=== PATIENT | male | born 1980 | race American Indian/Alaskan Native ===

== ENCOUNTER 2018-07-20 00:32 | Inpatient (IN) | payer SELFPAY ==
[2018-07-20] MEDS: TRIDIL DRIP 50MG/250ML 50 MG/250 ML BOTTLE IV SCH ×2 (00:40→09:17)
--- NOTE | 2018-07-20 00:51 | Emergency Department Report ---
HPI - General Chief Complaint: Dyspnea/Respdistress Time Seen by Provider: 07/20/18 00:34 - HPI HPI: Room 26 The patient is 37-year-old male presenting with chief complaint of shortness of breath. The patient states for 1 day he's had intermittent substernal chest pressure associated with shortness of breath. This evening the patient states shortness of breath worsen. Patient admits to diaphoresis with this chest pressure but denies nausea/vomiting. Per EMS the patient was found at home complaining of shortness of breath and hypoxia with a systolic blood pressure of 290. Patient was administered nitroglycerin by EMS which brought his systolic down to 232 upon arrival to the ED. Denies chest pain. Patient states his only complaint is shortness of breath. Patient states he ran out of his Lasix. Patient states his last stress test occurred approximately 3 months ago and he has never had a cardiac catheterization Location: Chest, lungs Duration: [See above] Quality: Shortness of Breath, pressure Severity: Moderate Modifying factors: [see above] Context: [see above] Mode of transportation: [not driving] ED Past Medical Hx - Past Medical History Previous Medical History?: Yes Hx Hypertension: Yes - Surgical History Past Surgical History?: No - Family History Family history: no significant - Social History Smoking Status: Never Smoker Substance Use Type: None (denies illicit drug use) - Medications Home Medications: Home Medications Medication Instructions Recorded Confirmed Last Taken Type No Known Home Medications [No 07/20/18 07/20/18 Unknown History Reported Home Medications] ED Review of Systems ROS: Stated complaint: SOB Other details as noted in HPI Constitutional: diaphoresis Eyes: denies: eye pain ENT: denies: throat pain Respiratory: shortness of breath Cardiovascular: chest pain Endocrine: no symptoms reported Gastrointestinal: denies: abdominal pain, nausea, vomiting Genitourinary: denies: dysuria Musculoskeletal: denies: back pain Neurological: denies: headache Physical Exam - Physical Exam Vital Signs: Vital Signs 07/20/18 00:33 Temperature 98.6 F Pulse Rate 114 H Respiratory 24 Rate Blood Pressure 232/167 O2 Sat by Pulse 92 Oximetry Physical Exam: GENERAL: The patient is well-developed well-nourished male lying on stretcher appearing to be in moderate respiratory distress. [] HEENT: Normocephalic. Atraumatic. Extraocular motions are intact. Patient has moist mucous membranes. NECK: Supple. Trachea midline CHEST/LUNGS: Diffuse rhonchi. There is tachypnea HEART/CARDIOVASCULAR: Regular. There is tachycardia. There is no gallop rub or murmur. ABDOMEN: Abdomen is soft, nontender. Patient has normal bowel sounds. There is no abdominal distention. SKIN: There is no rash. There is no diaphoresis. NEURO: The patient is awake, alert, and oriented. The patient is cooperative. The patient has normal speech MUSCULOSKELETAL: There is no evidence of acute injury. ED Course Vital Signs 07/20/18 00:33 Temperature 98.6 F Pulse Rate 114 H Respiratory 24 Rate Blood Pressure 232/167 O2 Sat by Pulse 92 Oximetry - Reevaluation(s) Reevaluation #1: 07/20/18 03:00 Patient states he feels a lot better ED Medical Decision Making - Lab Data Result diagrams: 07/20/18 00:45 07/20/18 00:45 Laboratory Tests 07/20/18 00:45 Sodium 137 Potassium 3.7 Chloride 101.2 Carbon Dioxide 21 L Anion Gap 19 BUN 43 H Creatinine 6.9 H Estimated GFR 11 BUN/Creatinine Ratio 6 Glucose 97 Calcium 9.0 Total Creatine Kinase 141 CK-MB (CK-2) 1.1 CK-MB (CK-2) Rel Index 0.7 Troponin T < 0.010 NT-Pro-B Natriuret Pep 57324 H WBC 7.2 Hemoglobin 11.3 Hematocrit 34.3 Platelet 154 - EKG Data -: EKG Interpreted by Me EKG shows normal: sinus rhythm Rate: tachycardia (110 bpm) - EKG Data When compared to previous EKG there are: previous EKG unavailable Interpretation: nonspecific ST-T wave roberta (T-wave inversion in lead V5, V6) - Radiology Data Radiology results: report reviewed (chest x-ray), image reviewed (chest x-ray) interpreted by me: Chest x-ray-early CHF. No pneumothorax [facility] [address] [place] [address] XRay Report Signed Patient: ANGEL ABRAMS MR#: [id number] : 1980 Acct:[id number] Age/Sex: 37 / M ADM Date: 07/20/18 Loc: ED Attending Dr: Ordering Physician: JOE FUNES MD Date of Service: 07/20/18 Procedure(s): XR chest 1V ap Accession Number(s): [id number] cc: JOE FUNES MD Fluoro Time In Minutes: FINAL REPORT PROCEDURE: XR CHEST 1V AP TECHNIQUE: Chest radiograph anteroposterior view. CPT 23197 HISTORY: shortness of breath COMPARISON: No prior studies are available for comparison. FINDINGS: Heart: Normal. Mediastinum/Vessels: Normal. Lungs/Pleural space: Lungs are expanded. There are faint perihilar pulmonary infiltrates. There is no pleural effusion or pneumothorax.. Bony thorax: No acute osseous abnormality. Life support devices: None. IMPRESSION: The heart size is normal.. Lungs are expanded. There are yisel nt perihilar pulmonary infiltrates. There is no pleural effusion or pneumothorax.. Transcribed By: CO Dictated By: ARDEN GARCIA MD Electronically Authenticated By: ARDEN GARCIA MD Signed Date/Time: 07/20/18129 DD/ 6 TD/TT: 07/20/18126 - Differential Diagnosis hypertensive urgency, CHF, pulmonary edema, ACS Critical care attestation.: If time is entered above; I have spent that time in minutes in the direct care of this critically ill patient, excluding procedure time. ED Disposition Clinical Impression: Hypertensive emergency, Shortness of breath, Acute renal failure Disposition: OP ADMIT IP TO THIS HOSP Is pt being admited?: Yes Does the pt Need Aspirin: Yes Condition: Serious Instructions: Hypertension (ED) Time of Disposition: 02:59 (hospitalist paged (Dr Charles))
[2018-07-20] MEDS ORDERED: ASPIRIN ONE (01:06)
--- NOTE | 2018-07-20 01:28 | XRay Report ---
FINAL REPORT PROCEDURE: XR CHEST 1V AP TECHNIQUE: Chest radiograph anteroposterior view. CPT 25919 HISTORY: shortness of breath COMPARISON: No prior studies are available for comparison. FINDINGS: Heart: Normal. Mediastinum/Vessels: Normal. Lungs/Pleural space: Lungs are expanded. There are faint perihilar pulmonary infiltrates. There is no pleural effusion or pneumothorax.. Bony thorax: No acute osseous abnormality. Life support devices: None. IMPRESSION: The heart size is normal.. Lungs are expanded. There are faint perihilar pulmonary infiltrates. There is no pleural effusion or pneumothorax..
[2018-07-20 02:15] LABS: Creatine Kinase MB 1.1 ng/mL (0.0-4.0)
[2018-07-20 02:35] LABS: BUN/Creatinine Ratio 6; Blood Urea Nitrogen 43 mg/dL (9-20); Hemolysis Index 1
[2018-07-20 03:00] LABS: Basophils # (Auto) 0.1 K/mm3 (0.0-0.1); Basophils % (Auto) 0.7 % (0.0-1.8); Eosinophils # (Auto) 0.2 K/mm3 (0.0-0.4); Eosinophils % (Auto) 2.2 % (0.0-4.3); Hematocrit 34.3 % (35.5-45.6); Hemoglobin 11.3 gm/dl (11.8-15.2); Lymphocytes % (Auto) 13.7 % (13.4-35.0); Mean Corpuscular HGB Conc 33 % (32-34); Mean Corpuscular Volume 83 fl (84-94); Monocytes # (Auto) 0.6 K/mm3 (0.0-0.8); Monocytes % (Auto) 8.3 % (0.0-7.3); Platelet Count 154 K/mm3 (140-440); Red Blood Count 4.14 M/mm3 (3.65-5.03); Red Cell Distribution Width 13.8 % (13.2-15.2)
[2018-07-20 03:36] LABS: Partial Thromboplastin Time 31.2 Sec. (24.2-36.6)
[2018-07-20] MEDS ORDERED: TYLENOL PO PRN (03:45)
[2018-07-20] MEDS ORDERED: MORPHINE IV PRN (03:46)
[2018-07-20] MEDS ORDERED: ZOFRAN IV PRN (03:48)
--- NOTE | 2018-07-20 05:04 | History and Physical Report ---
CHIEF COMPLAINT: Shortness of breath. Other complaint includes chest pain. HISTORY OF PRESENT ILLNESS: The patient is a 37-year-old male who started having shortness of breath some hours prior to presentation and developed diaphoresis with chest pressure, there was no history of nausea or vomiting, and no history of fever or chills and the patient was at home with systolic blood pressure rising up to as high as 290. EMS gave the patient nitroglycerin that brought down his systolic blood pressure to 232 on arrival at the Emergency Room. The patient said he ran out of his Lasix medication and denied history of chills, cough or fever. PAST MEDICAL HISTORY: Pertinent for hypertension. PAST SURGICAL HISTORY: Unremarkable. FAMILY HISTORY: Noncontributory. SOCIAL HISTORY: The patient does not smoke, does not drink alcohol, and does not use illicit drugs. MEDICATIONS: The patient's home medications are not known at this time; except that patient said he takes Lasix. ALLERGIES: There are no known drug allergies. REVIEW OF SYSTEMS: CONSTITUTIONAL: There are no fever, no chills. Diaphoresis present. HEENT: There is no headache or sore throat. CARDIOVASCULAR SYSTEM: Chest pain is present. There is no orthopnea. RESPIRATORY SYSTEM: Shortness of breath is present. There is no cough. GASTROINTESTINAL SYSTEM: There is no nausea, no vomiting, no abdominal pain, diarrhea or constipation. NEUROLOGICAL SYSTEM: There is no numbness. There is dizziness from time to time and no change in mental status. MUSCULOSKELETAL SYSTEM: There is no joint pain or swelling. DERMATOLOGICAL SYSTEM: There is no skin rash or itching. GENITOURINARY SYSTEM: There is no dysuria, hematuria, or flank pain. Rest of system review is normal. PHYSICAL EXAMINATION: GENERAL: At the time of exam, the patient was found to be alert, oriented x 3 and not in acute distress. VITAL SIGNS: Initial vital signs shows temperature of 98.6 degrees Fahrenheit, pulse of 114, respirations 24, blood pressure 232/167, O2 sat of 92% on room air. HEENT: Showed pupils to be equal, round, reactive to light and accommodating. Extraocular muscles are intact. NECK: Supple with no JVD or carotid bruit. CARDIOVASCULAR SYSTEM: Showed normal first and second heart sounds with no gallops or murmurs. RESPIRATORY SYSTEM: Showed good air entry on both sides of the lungs with no abnormal breath sounds. GASTROINTESTINAL SYSTEM: Showed abdomen to be full, soft, nontender with no organomegaly or rigidity. NEUROLOGICAL: Showed no focal deficit. MUSCULOSKELETAL SYSTEM: Showed no joint swelling or tenderness. DERMATOLOGICAL SYSTEM: Showed no skin rash. GENITOURINARY SYSTEM: Showed no costovertebral angle tenderness. PERTINENT LABORATORY AND IMAGING STUDIES: The patient had chest x-ray done that shows expanded lung with faint perihilar pulmonary infiltrate with no pleural effusion or pneumothorax found. The patient has CBC done with normal white count, low hemoglobin of 11.3 and low hematocrit of 34.3 with low MCV of 83. CBC differential showed elevated monocyte count of 8.3 %. Coagulation studies were unremarkable. Chemistry showed elevated BUN of 43 with elevated creatinine of 6.9. Brain natriuretic peptide level is high with a value of 18,207. DIAGNOSES: 1. Chest pain. 2. Hypertensive emergency. 3. Acute kidney injury. PLAN OF CARE: 1. The patient will be admitted to critical care unit. 2. The patient will continue nitro drip started in the Emergency Room. 3. The patient will have a critical care consult with Dr. Kenney for ICU admission with nitro drip. 4. The patient will have Nephrology consult with Dr. Regina Spence for acute kidney injury. 5. The patient will have serial cardiac enzymes involving troponin, total CK, and CK-MB checked every 6 hours x 2 more levels. 6. The patient will have basic metabolic panel checked this morning at about 6 a.m. 7. The patient will be on aspirin 325 mg by mouth daily and will be on heparin 5000 units subq q.12 hours. 10. The patient will be on IV morphine 2 mg every 3 hours as needed for chest pain and will be on IV Zofran 4 mg every 8 hours as needed for nausea and vomiting. 11. This patient will remain n.p.o. for Lexiscan stress test this morning. 12. The patient will have urine drug screen done this morning and will be on oxygen by nasal cannula at 2 liters per minute. JOB# [id number] OCN/NTS MTDD
[2018-07-20 06:41] LABS: Creatine Kinase MB 1.3 ng/mL (0.0-4.0)
[2018-07-20 06:45] LABS: Calcium 8.7 mg/dL (8.4-10.2)
[2018-07-20 07:39] LABS: Amphetamine Screen,Urine PRESUMPTIVE NEGATIVE; Benzodiazepines Screen,Urine PRESUMPTIVE NEGATIVE; Cannabinoid Screen,Urine PRESUMPTIVE NEGATIVE; Cocaine Screen,Urine PRESUMPTIVE NEGATIVE; Methadone Screen,Urine PRESUMPTIVE NEGATIVE; Opiate Screen,Urine PRESUMPTIVE NEGATIVE
[2018-07-20] MEDS ORDERED: ZOFRAN ONE (08:28)
[2018-07-20] MEDS ORDERED: TRIDIL DRIP 50MG/250ML 50 MG/250 ML BOTTLE ONE (08:34)
[2018-07-20] MEDS: ASPIRIN PO SCH (09:17)
[2018-07-20] MEDS: HEPARIN SUB-Q SCH ×2 (09:17→22:12)
[2018-07-20] MEDS ORDERED: COREG PO SCH ×2 (10:00→11:00)
[2018-07-20] MEDS: CARDENE 50 MG in NACL 0.9% 250ML 230 ML IV SCH ×3 (10:52→20:10)
--- NOTE | 2018-07-20 13:30 | Event Note ---
Date: 07/20/18 Patient seen and examined The patient is 37-year-old male presenting with chief complaint of intermittent substernal chest pressure associated with shortness of breath. This evening the patient states shortness of breath worsen. Per EMS the patient was found at home complaining of shortness of breath and hypoxia with a systolic blood pressure of 290. He was placed on NTG drip and admitted to ICU Will change his drip to cardene as he is c/o headache this am and BP still >200 will also start po coreg, hydralazine renal consulted for DHEERAJ
[2018-07-20] MEDS: APRESOLINE PO SCH ×2 (14:39→20:13)
--- NOTE | 2018-07-20 15:16 | Consultation ---
History of Present Illness - Reason for Consult Consult date: 07/20/18 acute renal failure, chronic renal failure, accelerated hypertension Requesting physician: MARION BENNETT - History of Present Illness 57-year-old male with a history of hypertension diagnosed about a year ago but will probably had it for much longer. Also told he had chronic kidney disease but he does not know the stage. Presented on account of one-day history of shortness of breath and intermittent chest pain. Patient lost his job and lost his insurance and so has been out of his medications for a couple of weeks. Described the pain as a throbbing pain in the left side of his chest which was intermittent and occurred while he was watching TV with his family. It was associated with shortness of breath and diaphoresis but no dizziness or palpitations. No headache. Patient's symptoms get worse and so he came to the ER. He is blood pressure was as high as 232/107 mmHg on presentation. BUN and creatinine are found to be elevated and I am consulted to assist in managing this. As noted earlier, had been told he has chronic kidney disease secondary to hypertension but does not know what stage. No history of kidney stones or recurrent infections. Has not been using any nonsteroidal anti-inflammation drugs recently and has not been exposed to radiocontrast. 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 denies: smoking, alcohol abuse, prescription drug abuse, IV drug use Family history: cancer (Father possibly of cancer), hypertension (mother has hypertension and also brother), other (Sister has low blood pressure) Medications and Allergies Allergies Allergy/AdvReac Type Severity Reaction Status Date / Time No Known Allergies Allergy Unverified 07/20/18 00:35 Home Medications Medication Instructions Recorded Confirmed Last Taken Type Carvedilol [Coreg] 6.25 mg PO 07/20/18 Unknown History amLODIPine [Norvasc] 10 mg PO DAILY 07/20/18 07/20/18 Unknown History niCARdipine 07/20/18 Unknown History Active Meds: Active Medications Acetaminophen (Tylenol) 650 mg PO Q4H PRN PRN Reason: Headache Aspirin (Aspirin) 325 mg PO QDAY JUNIOR Last Admin: 07/20/18 09:17 Dose: 325 mg Documented by: Atorvastatin Calcium (Lipitor) 40 mg PO QHS [facility] Carvedilol (Coreg) 6.25 mg PO BID [facility] Last Admin: 07/20/18 11:08 Dose: 6.25 mg Documented by: Heparin Sodium (Porcine) (Heparin) 5,000 unit SUB-Q Q12HR [facility] Last Admin: 07/20/18 09:17 Dose: 5,000 unit Documented by: Hydralazine HCl (Apresoline) 100 mg PO TID [facility] Last Admin: 07/20/18 14:39 Dose: 100 mg Documented by: Nicardipine HCl 50 mg/ Sodium (Chloride) 250 mls @ 25 mls/hr IV TITR [facility]; Protocol Last Titration: 07/20/18 11:15 Dose: 10 mg/hr, 50 mls/hr Documented by: Morphine Sulfate (Morphine) 2 mg IV Q3H PRN PRN Reason: Pain, Moderate (4-6) Last Admin: 07/20/18 09:17 Dose: 2 mg Documented by: Ondansetron HCl (Zofran) 4 mg IV Q8H PRN PRN Reason: Nausea And Vomiting Last Admin: 07/20/18 08:27 Dose: 4 mg Documented by: Review of Systems All systems: negative (Constitutional: no fever or chills. No anorexia or weight loss. HEENT: No sore throat or sinus drainage no hearing or vision impairment . Cardiovascular: See history of present illness. Respiratory: Admits to cough productive of whitish sputum, clear also admits to hemoptysis but no wheezing. Gastrointestinal: No nausea, vomiting, diarrhea, abdominal pain, hematemesis or melena. Genitourinary: No frequency urgency dysuria or hematuria. hematologic: No abnormal bleeding or bruising. Integumentary: no pruritus or rash. Neurolo gical: Admits to dizziness on getting up sometimes. No headache no focal weakness or numbness, no syncope or seizures. Musculoskeletal: No joint pains no stiffness. Psychiatry: no anxiety or depression) Exam - Vital Signs Vital signs: Vital Signs Pulse Ox 93 07/20/18 00:26 - Physical Exam Narrative exam: Young -[place]ian male lying in bed in no acute distress HEENT: NCAT, pink oral mucous membrane Neck: Supple, no venous distention CVS: S1S2 RRR loud S2 with no murmur, rub or gallop Chest: Clear to auscultation Abdomen: Protuberant, soft, nontender, no organomegaly, bowel sounds are present Extremities: No edema Skin warm and dry with no rash. Genitourinary deferred Neuro: Awake, alert no focal deficits Results - Lab Results 07/20/18 00:45 07/20/18 05:38 Most recent lab results Calcium 8.7 mg/dL (8.4-10.2) 07/20/18 05:38 Assessment and Plan - Patient Problems (1) Chronic kidney disease, stage 5 Current Visit: Yes Status: Acute Plan to address problem: Suspect chronic kidney disease secondary to hypertensive nephrosclerosis which is progressing to stage V chronic kidney disease. If there is significance proteinuria on urinalysis, would do a more extensive evaluation for glomerulonephritis. No overt uremic symptoms and no volume overload. No indication for dialysis now. Observe for improvement in kidney function otherw ise we need to start making arrangements for AV access dialysis soon. (2) Other acute kidney failure Current Visit: Yes Status: Acute Plan to address problem: Possible acute kidney injury secondary to malignant hypertensive nephrosclerosis. Control blood pressure and observe for improvement in kidney f unction. Also try to get records from primary care physician of previous renal function (3) Chest pain Current Visit: Yes Status: Acute Plan to address problem: Probably related to hypertensive emergency. If no previous cardiac WORKUP, may need a stress test. Defer to cardiology (4) Anemia in chronic kidney disease Current Visit: Yes Status: Acute Plan to address problem: Follow-up hemoglobin. Will need Erythropoetin when he decreases to less than 9 g/dL (5) Hypertensive emergency Current Visit: Yes Status: Acute Plan to address problem: Patient on Cardene drip. Start oral antihypertensive medications with parameters to hold and slowly wean off Cardene drip
[2018-07-20 15:31] LABS: Creatine Kinase MB 1.6 ng/mL (0.0-4.0)
--- NOTE | 2018-07-20 18:04 | Consultation ---
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 denies: smoking, alcohol abuse, prescription drug abuse, IV drug use Family history: cancer (Father possibly of cancer), hypertension (mother has hypertension and also brother), other (Sister has low blood pressure) Medications and Allergies Allergies Allergy/AdvReac Type Severity Reaction Status Date / Time No Known Allergies Allergy Unverified 07/20/18 00:35 Home Medications Medication Instructions Recorded Confirmed Last Taken Type Carvedilol [Coreg] 6.25 mg PO BID 07/20/18 07/21/18 07/05/18 History amLODIPine [Norvasc] 10 mg PO DAILY 07/20/18 07/20/18 Unknown History Active Meds: Active Medications Acetaminophen (Tylenol) 650 mg PO Q4H PRN PRN Reason: Headache Aspirin (Aspirin) 325 mg PO QDAY [facility] Last Admin: 07/20/18 09:17 Dose: 325 mg Documented by: Atorvastatin Calcium (Lipitor) 40 mg PO QHS [facility] Carvedilol (Coreg) 12.5 mg PO BID [facility] Clonidine HCl (Catapres) 0.1 mg PO Q12HR [facility] Heparin Sodium (Porcine) (Heparin) 5,000 unit SUB-Q Q12HR [facility] Last Admin: 07/20/18 09:17 Dose: 5,000 unit Documented by: Hydralazine HCl (Apresoline) 100 mg PO TID [facility] Last Admin: 07/20/18 14:39 Dose: 100 mg Documented by: Nicardipine HCl 50 mg/ Sodium (Chloride) 250 mls @ 25 mls/hr IV TITR [facility]; Protocol Last Admin: 07/20/18 15:15 Dose: 10 mg/hr, 50 mls/hr Documented by: Morphine Sulfate (Morphine) 2 mg IV Q3H PRN PRN Reason: Pain, Moderate (4-6) Last Admin: 07/20/18 09:17 Dose: 2 mg Documented by: Ondansetron HCl (Zofran) 4 mg IV Q8H PRN PRN Reason: Nausea And Vomiting Last Admin: 07/20/18 08:27 Dose: 4 mg Documented by: Physical Examination Vital signs: Vital Signs Pulse Ox 93 07/20/18 00:26 Results - Laboratory Findings CBC and BMP: 07/20/18 00:45 07/21/18 05:00 PT/INR, D-dimer PT 13.8 Sec. (12.2-14.9) 07/20/18 00:44 INR 1.00 (0.87-1.13) 07/20/18 00:44 Abnormal lab findings: Abnormal Labs 07/20/18 07/20/18 07/20/18 00:45 00:45 05:38 Hgb 11.3 L Hct 34.3 L MCV 83 L MCH 27 L [place] % (Auto) 8.3 H Lymph # 1.0 L Seg Neutrophils % 75.1 H Carbon Dioxide 21 L 21 L BUN 43 H 44 H Creatinine 6.9 H 6.7 H Glucose 107 H NT-Pro-B Natriuret Pep 18653 H
[2018-07-20] MEDS: NORMODYNE IV SCH ×2 (18:55→23:44)
[2018-07-20 19:12] LABS: Bacteria,Urine 1+ /HPF (Negative); Bilirubin,Urine NEG (Negative); Blood,Urine SM (Negative); Color,Urine Straw (Yellow); Mucus,Urine FEW /HPF; Urobilinogen,Urine < 2.0 mg/dL (<2.0); WBC,Urine < 1.0 /HPF (0.0-6.0)
[2018-07-20 19:47] LABS: Creatinine,Urine 88.8 mg/dL (0.1-20.0)
[2018-07-20] MEDS: CATAPRES PO SCH (22:11)
[2018-07-20] MEDS: COREG PO SCH (22:11)
--- NOTE | 2018-07-20 22:17 | Ultrasound Report ---
FINAL REPORT PROCEDURE: US RENAL BILAT TECHNIQUE: Real-time sonography in multiple planes of the kidneys, ureters and urinary bladder was p erformed with image documentation. CPT 30533 HISTORY: Acute kidney injury COMPARISON: No prior studies are available for comparison. FINDINGS: RIGHT kidney: Hyperechoic suggesting chronic medical renal disease. No focal renal mass, calculus, or hydronephrosis. Length: 9.1 cm. There is an 8 millimeter cortical cyst. LEFT kidney: Hyperechoic suggesting chronic medical renal disease No focal renal mass, calculus, or h ydronephrosis. Length: 9.8cm. There is a 3.5 centimeter cyst at the apex. Bladder: Normal. Incidental bilateral pleural effusions. IMPRESSION: Kidneys are atrophic and hyperechoic suggesting chronic medical renal disease. There are incidental b ilateral cysts. There are no stones, masses or hydronephrosis..
[2018-07-21] MEDS: NORMODYNE IV SCH ×6 (03:23→23:30)
[2018-07-21 05:40] LABS: Calcium 8.5 mg/dL (8.4-10.2)
[2018-07-21] MEDS: APRESOLINE PO SCH ×3 (07:59→21:13)
--- NOTE | 2018-07-21 08:14 | Progress Note ---
Assessment and Plan - Patient Problems (1) Hypertensive emergency Current Visit: Yes Status: Acute Plan to address problem: Weaned off the cardene gtt, and is now tolerating PO medications. Will continue to monitor, and if further blood pressure control desired, would favor and recommend increasing coreg to 25 mg BID. (2) Chronic kidney disease, stage 5 Current Visit: Yes Status: Acute Plan to address problem: Based on labs and renal US, discussed with patient my concerns for likely progression to CKD V and need for HD in the near future. Will monitor closely. Will need to be referred to vascular surgery for permanent AVF placement. He is not exhibiting any uremic symptoms or signs of volume overload that necessitates the need for urgent HD initiation. (3) Anemia in chronic kidney disease Current Visit: Yes Status: Acute Qualifiers: Chronic kidney disease stage: stage 5, not on chronic dialysis Qualified Code(s): N18.5 - Chronic kidney disease, stage 5; D63.1 - Anemia in chronic kidney disease Plan to address problem: Continue to monitor H/H. BRYON therapy if hemoglobin levels decrease below 9g/dL. (4) Chest pain Current Visit: Yes Status: Acute Plan to address problem: Possibly in the setting of HTN emergency. Symptomatically free at this time. Await further cardiology recommendations. Subjective Date of service: 07/21/18 Interval history: He has been weaned off the cardene gtt. Has also been started on oral medications. No acute complaints at this time. His labs noted and still indicates significant renal damage. No acute uremic symptoms and no acute HD needs today, but I told him that he needs to have close follow up with us as an outpatient in order for close follow up and likely need for HD initiation in near future. Objective - Vital Signs Vital signs: Vital Signs - 12hr 07/20/18 07/20/18 07/20/18 20:15 20:30 20:45 Temperature Pulse Rate 95 H 95 H 97 H Pulse Rate [ From Monitor] Respiratory 32 H 26 H 27 H Rate Blood Pressure 140/82 149/90 151/93 O2 Sat by Pulse 94 95 94 Oximetry 07/20/18 07/20/18 07/20/18 21:01 21:15 21:30 Temperature Pulse Rate 99 H 101 H 99 H Pulse Rate [ From Monitor] Respiratory 35 H 28 H 27 H Rate Blood Pressure 157/92 164/101 147/90 O2 Sat by Pulse 94 94 94 Oximetry 07/20/18 07/20/18 07/20/18 21:45 22:00 22:11 Temperature Pulse Rate 99 H 101 H 101 H Pulse Rate [ From Monitor] Respiratory 31 H 26 H Rate Blood Pressure 140/88 140/88 145/90 O2 Sat by Pulse 94 95 Oximetry 07/20/18 07/20/18 07/20/18 22:15 22:30 22:45 Temperature Pulse Rate 105 H 101 H 104 H Pulse Rate [ From Monitor] Respiratory 24 28 H 23 Rate Blood Pressure 158/99 148/88 138/83 O2 Sat by Pulse 94 94 94 Oximetry 07/20/18 07/20/18 07/20/18 23:00 23:15 23:30 Temperature Pulse Rate 101 H 98 H 96 H Pulse Rate [ From Monitor] Respiratory 26 H 23 24 Rate Blood Pressure 136/79 139/82 138/83 O2 Sat by Pulse 94 94 94 Oximetry 07/20/18 07/20/18 07/21/18 23:44 23:45 00:00 Temperature 98.8 F Pulse Rate 100 H 93 H 91 H Pulse Rate [ 87 From Monitor] Respiratory 26 H 29 H Rate Blood Pressure 136/79 133/78 133/72 O2 Sat by Pulse 94 93 Oximetry 07/21/18 07/21/18 07/21/18 00:15 00:30 00:45 Temperature Pulse Rate 90 89 89 Pulse Rate [ From Monitor] Respiratory 25 H 21 24 Rate Blood Pressure 132/73 135/78 136/83 O2 Sat by Pulse 93 93 93 Oximetry 07/21/18 07/21/18 07/21/18 01:00 01:15 01:30 Temperature Pulse Rate 89 88 89 Pulse Rate [ From Monitor] Respiratory 23 26 H 18 Rate Blood Pressure 141/84 138/82 139/83 O2 Sat by Pulse 96 96 96 Oximetry 07/21/18 07/21/18 07/21/18 01:45 02:00 02:15 Temperature Pulse Rate 90 90 90 Pulse Rate [ From Monitor] Respiratory 25 H 22 21 Rate Blood Pressure 137/81 143/79 136/81 O2 Sat by Pulse 97 96 97 Oximetry 07/21/18 07/21/18 07/21/18 02:30 02:45 03:00 Temperature Pulse Rate 91 H 88 87 Pulse Rate [ From Monitor] Respiratory 26 H 23 27 H Rate Blood Pressure 130/88 124/72 120/69 O2 Sat by Pulse 96 96 96 Oximetry 07/21/18 07/21/18 07/21/18 03:15 03:23 03:30 Temperature Pulse Rate 88 88 88 Pulse Rate [ From Monitor] Respiratory 22 22 Rate Blood Pressure 123/67 123/67 118/66 O2 Sat by Pulse 96 96 Oximetry 07/21/18 07/21/18 07/21/18 03:45 04:00 04:15 Temperature 98.8 F Pulse Rate 88 89 87 Pulse Rate [ 90 From Monitor] Respiratory 21 21 24 Rate Blood Pressure 127/77 123/68 130/71 O2 Sat by Pulse 96 96 96 Oximetry 07/21/18 07/21/18 07/21/18 04:30 04:45 05:00 Temperature Pulse Rate 89 89 92 H Pulse Rate [ From Monitor] Respiratory 20 21 22 Rate Blood Pressure 129/73 133/77 140/81 O2 Sat by Pulse 97 97 96 Oximetry 07/21/18 07/21/18 07/21/18 05:15 05:30 05:45 Temperature Pulse Rate 93 H 92 H 92 H Pulse Rate [ From Monitor] Respiratory 24 24 21 Rate Blood Pressure 152/92 151/90 144/88 O2 Sat by Pulse 97 97 97 Oximetry 07/21/18 07/21/18 07/21/18 06:00 06:15 06:30 Temperature Pulse Rate 93 H 91 H 93 H Pulse Rate [ From Monitor] Respiratory 22 22 27 H Rate Blood Pressure 143/89 146/86 151/93 O2 Sat by Pulse 97 97 96 Oximetry 07/21/18 07/21/18 07/21/18 06:45 07:00 07:15 Temperature Pulse Rate 92 H 93 H 92 H Pulse Rate [ From Monitor] Respiratory 23 22 20 Rate Blood Pressure 145/87 154/94 152/93 O2 Sat by Pulse 96 96 97 Oximetry 07/21/18 07/21/18 07:30 07:42 Temperature Pulse Rate 95 H 94 H Pulse Rate [ From Monitor] Respiratory 21 Rate Blood Pressure 164/103 164/103 O2 Sat by Pulse 97 Oximetry - General Appearance General appearance: well-developed, well-nourished, appears stated age EENT: ATNC, PERRL Neck: no JVD, no thyromegaly Respiratory: Present: Clear to Ascultation Cardiology: regular, S1S2 Gastrointestinal: normal, normoactive bowel sounds Integumentary: no rash, warm and dry Neurologic: no focal deficit, no asterixis Musculoskeletal: other (-edema ) Psychiatric: mood/affect appropriate, cooperative - Lab 07/20/18 00:45 07/21/18 05:00 Most recent lab results Calcium 8.5 mg/dL (8.4-10.2) 07/21/18 05:00 Urine Creatinine 88.8 mg/dL (0.1-20.0) H 07/20/18 Unknown Urine Total Protein 79 mg/dL (5-11.8) H 07/20/18 Unknown - Imaging Chest x-ray: pending - Allied health notes Allied health notes reviewed: nursing Medications & Allergies - Medications Allergies/Adverse Reactions: Allergies No Known Allergies Allergy (Unverified 07/20/18 00:35) Home Medications: Home Medications Medication Instructions Recorded Confirmed Last Taken Type Carvedilol [Coreg] 6.25 mg PO 07/20/18 Unknown History amLODIPine [Norvasc] 10 mg PO DAILY 07/20/18 07/20/18 Unknown History niCARdipine 07/20/18 Unknown History Active Medications: Generic Name Dose Route Start Last Admin Trade Name Freq PRN Reason Stop Dose Admin Acetaminophen 650 mg 07/20/18 03:45 Tylenol PO Q4H PRN Headache Aspirin 325 mg 07/20/18 10:00 07/20/18 09:17 Aspirin PO 325 mg QDAY JUNIOR Administration Atorvastatin Calcium 40 mg 07/20/18 22:00 07/20/18 22:11 Lipitor PO 40 mg QHS JUNIOR Administration Carvedilol 12.5 mg 07/20/18 22:00 07/20/18 22:11 Coreg PO 12.5 mg BID JUNIOR Administration Clonidine HCl 0.1 mg 07/20/18 22:00 07/20/18 22:11 Catapres PO 0.1 mg Q12HR JUNIOR Administration Heparin Sodium (Porcine) 5,000 unit 07/20/18 10:00 07/20/18 22:12 Heparin SUB-Q 5,000 unit Q12HR JUNIOR Administration Hydralazine HCl 100 mg 07/20/18 14:00 07/21/18 07:59 Apresoline PO 100 mg TID JUNIOR Administration Nicardipine HCl 50 mg/ Sodium 250 mls @ 25 mls/hr 07/20/18 10:00 07/20/18 21:00 Chloride IV 0 mg/hr TITR JUNIOR 0 mls/hr Titration Protocol 5 MG/HR Labetalol HCl 10 mg 07/20/18 19:00 07/21/18 07:42 Normodyne IV 07/22/18 18:59 10 mg Q4H JUNIOR Administration Morphine Sulfate 2 mg 07/20/18 03:46 07/20/18 09:17 Morphine IV 2 mg Q3H PRN Administration Pain, Moderate (4-6) Ondansetron HCl 4 mg 07/20/18 03:48 07/20/18 08:27 Zofran IV 4 mg Q8H PRN Administration Nausea And Vomiting
[2018-07-21] MEDS: HEPARIN SUB-Q SCH ×2 (10:09→21:14)
[2018-07-21] MEDS: COREG PO SCH ×2 (10:10→21:14)
[2018-07-21] MEDS: CATAPRES PO SCH ×2 (10:10→21:13)
[2018-07-21] MEDS: ASPIRIN PO SCH (10:10)
--- NOTE | 2018-07-21 15:23 | Progress Note ---
Assessment and Plan Hypertensive emergency. Chest Pain Cardiomyopathy. Acute on chronic kidney injury. Acute hypoxemic respiratory failure. Anemia that is microcytic. Mild metabolic acidosis. Elevated serum BNP. Medication noncompliance. - continue IV labetalol with hold parameters - continue with oral medications - continue GI & VTE prophylaxis - continue to avoid nephrotoxic agents, dose all medications for GFR/CrCL - PT/OT - continue supplemental oxygen as indicated if O2 sats< 88% - Discharge planning ongoing concurrently .... re-evaluate in am & prn Subjective Date of service: 07/21/18 Principal diagnosis: Hypertensive emergency; Chest pain; Chronic Kidney Disease Stage IV Interval history: Patient is seen today for: Hypertensive emergency; Chest pain; Chronic Kidney Disease Stage IV Seen and examined at bedside; 24hour events reviewed; nursing and respiratory care staff consulted; no adverse overnight events reported to me; denies any chest pain or acute SOB; No N/V/F/C; no hemoptysis; BP's better controlled Objective Vital Signs - 12hr 07/21/18 07/21/18 07/21/18 03:23 03:30 03:45 Temperature Pulse Rate 88 88 88 Pulse Rate [ From Monitor] Respiratory 22 21 Rate Blood Pressure 123/67 118/66 127/77 O2 Sat by Pulse 96 96 Oximetry 07/21/18 07/21/18 07/21/18 04:00 04:15 04:30 Temperature 98.8 F Pulse Rate 89 87 89 Pulse Rate [ 90 From Monitor] Respiratory 21 24 20 Rate Blood Pressure 123/68 130/71 129/73 O2 Sat by Pulse 96 96 97 Oximetry 07/21/18 07/21/18 07/21/18 04:45 05:00 05:15 Temperature Pulse Rate 89 92 H 93 H Pulse Rate [ From Monitor] Respiratory 21 22 24 Rate Blood Pressure 133/77 140/81 152/92 O2 Sat by Pulse 97 96 97 Oximetry 07/21/18 07/21/18 07/21/18 05:30 05:45 06:00 Temperature Pulse Rate 92 H 92 H 93 H Pulse Rate [ From Monitor] Respiratory 24 21 22 Rate Blood Pressure 151/90 144/88 143/89 O2 Sat by Pulse 97 97 97 Oximetry 07/21/18 07/21/18 07/21/18 06:15 06:30 06:45 Temperature Pulse Rate 91 H 93 H 92 H Pulse Rate [ From Monitor] Respiratory 22 27 H 23 Rate Blood Pressure 146/86 151/93 145/87 O2 Sat by Pulse 97 96 96 Oximetry 07/21/18 07/21/18 07/21/18 07:00 07:15 07:30 Temperature Pulse Rate 93 H 92 H 95 H Pulse Rate [ From Monitor] Respiratory 22 20 21 Rate Blood Pressure 154/94 152/93 164/103 O2 Sat by Pulse 96 97 97 Oximetry 07/21/18 07/21/18 07/21/18 07:42 07:45 08:00 Temperature 97.9 F Pulse Rate 94 H 94 H 94 H Pulse Rate [ 94 H From Monitor] Respiratory 24 24 Rate Blood Pressure 164/103 162/98 158/96 O2 Sat by Pulse 97 97 Oximetry 07/21/18 07/21/18 07/21/18 08:15 08:30 08:45 Temperature Pulse Rate 92 H 91 H 91 H Pulse Rate [ From Monitor] Respiratory 22 21 18 Rate Blood Pressure 152/94 153/93 152/81 O2 Sat by Pulse 97 98 98 Oximetry 07/21/18 07/21/18 07/21/18 09:00 09:15 09:30 Temperature Pulse Rate 93 H 96 H 97 H Pulse Rate [ From Monitor] Respiratory 19 23 21 Rate Blood Pressure 139/76 144/76 156/89 O2 Sat by Pulse 98 99 98 Oximetry 07/21/18 07/21/18 07/21/18 09:45 10:00 10:10 Temperature Pulse Rate 96 H 99 H 100 H Pulse Rate [ From Monitor] Respiratory 20 18 Rate Blood Pressure 153/84 166/92 166/92 O2 Sat by Pulse 99 97 Oximetry 07/21/18 07/21/18 07/21/18 10:15 10:30 10:45 Temperature Pulse Rate 99 H 98 H 93 H Pulse Rate [ From Monitor] Respiratory 22 20 23 Rate Blood Pressure 166/85 157/90 156/86 O2 Sat by Pulse 97 97 97 Oximetry 07/21/18 07/21/18 07/21/18 11:00 11:15 11:30 Temperature Pulse Rate 94 H 94 H 93 H Pulse Rate [ From Monitor] Respiratory 22 26 H 26 H Rate Blood Pressure 156/86 150/82 146/91 O2 Sat by Pulse 96 95 95 Oximetry 07/21/18 07/21/18 07/21/18 11:45 11:59 12:00 Temperature 98.2 F Pulse Rate 92 H 92 H 91 H Pulse Rate [ 91 H From Monitor] Respiratory 26 H 22 Rate Blood Pressure 145/84 145/84 150/92 O2 Sat by Pulse 95 96 Oximetry 07/21/18 07/21/18 07/21/18 12:15 12:31 12:45 Temperature Pulse Rate 93 H 91 H 91 H Pulse Rate [ From Monitor] Respiratory 18 14 19 Rate Blood Pressure 157/96 150/94 159/89 O2 Sat by Pulse 97 96 96 Oximetry 07/21/18 07/21/18 13:00 13:15 Temperature Pulse Rate 93 H 94 H Pulse Rate [ From Monitor] Respiratory 20 26 H Rate Blood Pressure 147/84 149/81 O2 Sat by Pulse 96 95 Oximetry Constitutional: no acute distress, alert, other (middle aged AAM, normocephalic and atraumatic with mildly increase respiratory effort at rest) Effort: mildly labored Ascultation: Bilateral: diminished breath sounds, rhonchi Percussion: Bilateral: not dull Cardiovascular: regular rate and rhythm Gastrointestinal: normoactive bowel sounds, soft, non-tender, non-distended Integumentary: normal Extremities: no cyanosis, no edema, pulses normal, no ischemia or petechiae Neurologic: normal mental status, non-focal exam, pupils equal and round, CN II- XII normal, motor strength normal and Psychiatric: mood appropriate, affect normal CBC and BMP: 07/22/18 04:33 07/22/18 04:33 ABG, PT/INR, D-dimer: PT/INR, D-dimer PT 13.8 Sec. (12.2-14.9) 07/20/18 00:44 INR 1.00 (0.87-1.13) 07/20/18 00:44 Abnormal lab findings: Abnormal Labs 07/20/18 07/20/18 07/20/18 00:45 00:45 05:38 Hgb 11.3 L Hct 34.3 L MCV 83 L MCH 27 L [place] % (Auto) 8.3 H Lymph # 1.0 L Seg Neutrophils % 75.1 H Carbon Dioxide 21 L 21 L BUN 43 H 44 H Creatinine 6.9 H 6.7 H Glucose 107 H NT-Pro-B Natriuret Pep 53767 H PTH Intact Urine Creatinine Urine Total Protein 07/20/18 07/21/18 07/21/18 Unknown 05:00 05:00 Hgb Hct MCV MCH [place] % (Auto) Lymph # Seg Neutrophils % Carbon Dioxide BUN 44 H Creatinine 7.0 H Glucose 110 H NT-Pro-B Natriuret Pep PTH Intact 257.8 H Urine Creatinine 88.8 H Urine Total Protein 79 H Chest x-ray: image reviewed Allied health notes reviewed: nursing
--- NOTE | 2018-07-21 16:07 | Consultation ---
PULMONARY/CRITICAL CARE CONSULTATION NOTE CONSULTING PHYSICIAN: Dr. Webster and Dr. Charles, Hospitalist. REASON FOR CONSULTATION: Hypertensive emergency. CHIEF COMPLAINT AND HISTORY OF PRESENT ILLNESS: The patient is a 37-year-old -[place] male with past medical history significant for diagnosis of hypertension, on treatment. He states he lost his job, stopped taking his medications, could not afford them. He complained about 1 day of intermittent substernal chest pressure with associated shortness of breath on the day of presentation, worsening shortness of breath, and dyspnea on exertion worsened. He became diaphoretic. He denied nausea or vomiting. Emergency medical services were called. When they got there, he was hypoxemic. However, his systolic blood pressures were as high as 290 mmHg. He also was on Lasix, but he had run out of his Lasix. He was brought into the Emergency Room, evaluated in the Emergency Room, diagnosed with hypertensive emergency, started on a nitro drip and then switched over to a Cardene drip, ICU admission was asked for. When I stopped by to see him, he was on Cardene at 15 mg per hour. Chest pressure was much better. He denied any fevers or chills. He denied any gross or streaky hemoptysis. He denied any palpitations. He denied any new onset leg pain or swelling either unilaterally or bilaterally or any suggestion of deep venous thrombosis and a possible venous thromboembolic phenomenon. With regards to tobacco use/abuse history, he described himself as a never smoker. This really is as much of the history of presentation as I have. PAST MEDICAL HISTORY: Hypertension. PAST SURGICAL HISTORY: None. MEDICATIONS: He was on at the time I stopped by to see him were reviewed. Pertinent medications included the following: He was on Tylenol 650 mg p.o. q. 4 hours p.r.n. mild pain, aspirin 325 mg p.o. daily, Lipitor 40 mg p.o. at bedtime, carvedilol 12.5 mg p.o. b.i.d., clonidine had just been ordered 0.1 mg p.o. q. 12 hours. He was on heparin 5000 units subcu every 12 hours, hydralazine 100 mg p.o. t.i.d., nicardipine drip was still going at 15 mg per hour, morphine sulfate 2 mg IV q 3 hours p.r.n. nausea and vomiting and p.r.n. pain and then Zofran 4 mg IV p.r.n. nausea and vomiting. ALLERGIES: No known drug allergies. DIET: Well-built gentleman. Denies acute weight loss or gain in the preceding few weeks to months. FAMILY AND SOCIAL HISTORY: Lives in the community. Denies alcohol, tobacco, or illicit drug use or abuse. There is a history of some type of malignancy in his family. The father of malignancy. There is also a history of hypertension in his mother. REVIEW OF SYSTEMS: No overt loss of consciousness. No new onset seizures. No new onset focal weakness. No gross hematochezia or melena. No gross hematuria or dysuria. No hematemesis. No hemoptysis. He denied palpitations. Denies heat or cold intolerance. Denies polydipsia or polyuria. Denies any new onset rash on his body. Complete 13-system review of systems obtained. Pertinent positives and/or negatives as in body of history above, otherwise, noncontributory. PHYSICAL EXAMINATION: VITAL SIGNS: At presentation, he was afebrile, temperature 98.6 degrees Fahrenheit with a pulse of 111, respiratory rate of 26, blood pressure 232/167. O2 sats were 94%, inspired oxygen concentration at that time was not recorded. When I stopped by to see him, he was on 2 liters nasal cannula and his O2 sats were 98%. HEAD, EYES, EARS, NOSE, AND THROAT: Anicteric, no conjunctival erythema. Oropharynx is moist. Mallampati #2 oropharynx. No gross jugular venous distention, no palpable lymph nodes in the supraclavicular or submandibular lymph node chains. No thyromegaly. LUNGS: Auscultation of both lung hernandez, bibasilar inspiratory rales, no wheezing. HEART: Heart sounds 1 and 2 are heard. They were regular in rate and rhythm at time of my evaluation without rubs or murmurs. ABDOMEN: Soft, full, bowel sounds are positive, nontender. No palpable hepatosplenomegaly. EXTREMITIES: Without overt digital clubbing, cyanosis, or pedal edema. Dorsalis pedis pulses are 2+ bilaterally and palpable. NEUROLOGIC: Pupils equal, round, about 4 mm, reactive to light. Extraocular muscle movements are intact. He moves all 4 extremities spontaneously. SKIN: Normal turgor without overt cellulitis or rash. LABORATORY AND DIAGNOSTIC DATA: From my review, white cell count on admission 7200, hemoglobin 11.3, hematocrit 34.3, platelet count 154. INR 1.0. Serum sodium 137, potassium 3.7, chloride 101, bicarbonate 21, BUN 43, creatinine 6.9, glucose 97. Troponin within normal limits. CK, CK-MB within normal limits. BNP 18,217. Urinalysis was negative for nitrites and leukocyte esterase. He was spilling protein urine, total protein was 79. Urine drug screen was negative. No microbiology studies. Radiographic studies have been reviewed. He had a chest x-ray done. I have reviewed the chest x-ray. I have also taken the time to review the radiologist's interpretation. He describes it as faint perihilar pulmonary infiltrates without overt pneumothorax or effusion, I think he has definitely let increased interstitial markings. Overall, picture consistent with [id number] pulmonary edema. No gross pneumothorax, no gross bony fracture. ASSESSMENT: 1. Hypertensive emergency. 2. Cardiomyopathy. 3. Acute on chronic kidney injury. 4. Acute hypoxemic respiratory failure. 5. Anemia that is microcytic. 6. Mild metabolic acidosis. 7. Elevated serum BNP. 8. Medication noncompliance. PLAN: We will continue the Cardene drip and the oral antihypertensives that have been started. I will schedule some labetalol q.4 hours 10 mg with hold parameters for systolic blood pressure less than 150 and pulse less than 60; this is to ensure that we can continue to wean off the Cardene drip. I have discussed the plan with the nurse. His nurse is to ensure that she continues to drop the Cardene drip. A 2D echocardiogram has been ordered. We will follow that. Nephrology consultation has been placed. I will defer to them. He is nonoliguric at this time. We will try and use medications that he perhaps can afford better. Continued tobacco abstinence has been encouraged. We will continue to wean the Cardene drip for systolic blood pressures greater than or equal to about 150-160 at this point. He is going to be placed on GI and DVT prophylaxis. Flu and pneumonia vaccination will be addressed per protocol. Thank you very much for the consult, Dr. Charles. We will follow along and make further recommendations as the picture progresses/becomes clearer. I should mention oxygen will be weaned to keep sats greater than or equal to about 90% and hopefully as he self altered diuresis, I believe some of this is a flash pulmonary edema due to the elevated blood pressures. He is critically ill on life-sustaining interventions including the Cardene drip at high risk for decompensation in the cardiopulmonary systems including the risk of . At this time, I spent about 30-35 minutes of critical care time without overlap and excluding any procedural time that may be necessary. JOB# [id number] STARR/DENISE PORRAS
--- NOTE | 2018-07-21 16:54 | Progress Note ---
Assessment and Plan /Hypertensive emergency Weaned off the cardene gtt, and is now tolerating PO medications. Will continue to monitor, cont coreg, hydralazine and clonidine /Chronic kidney disease, stage 5 nephrology consulted, monitor renal function for now Concerns for likely progression to CKD V and need for HD in the near future. Will need to be referred to vascular surgery for permanent AVF per renal / Anemia in chronic kidney disease Continue to monitor H/H. Per renal needs BRYON therapy if hemoglobin levels decrease below 9g/dL. / Chest pain Possibly in the setting of HTN emergency. Symptomatically free at this time. Await further cardiology recommendations. Had recent cardiac eval at [facility], will get report Brief History: 57-year-old male with a history of hypertension diagnosed about a year ago, who lost his job and lost his insurance and so has been out of his medications for a couple of weeks Presented with one-day history of shortness of breath and intermittent chest pain. In the ER his blood pressure was as high as 232/107 mmHg on presentation. BUN and creatinine are found to be elevated. he was placed on NTG and admitted to ICU. BP did not improve with NTG and patient c/o headache. NTG drip stopped and placed on cardene drip and oral BP meds. His BP much improved, chest pain resolved. weaned off from cardene drip today. transfer to tele. Hospitalist Physical exam: GENERAL: well-developed and well-nourished AAM lying on bed appeared to be in no discomfort. HEENT: Normocephalic. Atraumatic. No conjunctival congestion or icterus. Patient has moist mucous membranes. NECK: Supple. Trachea midline. CHEST/LUNGS: Clear to auscultated bilaterally, breathing nonlabored. No wheezes crackles or rhonchi. HEART/CARDIOVASCULAR: Regular in rate and rhythm. S1 and S2 positive. ABDOMEN: Abdomen is soft, nontender. Patient has normal bowel sounds. SKIN: There is no rash. Warm and dry. NEURO: No focal motor deficit. Follows command. MUSCULOSKELETAL: No joint effusion or tenderness. EXTRIMITY: No edema, no cyanosis or clubbing. PSYCH: Cooperative. Subjective Date of service: 07/21/18 Interval history: Patient seen and examined. Medical records and medication list reviewed. No acute event overnight noted by the RN. Patient denies any chest pain or difficulty breathing. Patient is tolerating diet. Discussed plan of care at bedside with patient. Objective - Constitutional Vitals: Vital Signs - 12hr 07/21/18 07/21/18 07/21/18 05:00 05:15 05:30 Temperature Pulse Rate 92 H 93 H 92 H Pulse Rate [ From Monitor] Respiratory 22 24 24 Rate Blood Pressure 140/81 152/92 151/90 O2 Sat by Pulse 96 97 97 Oximetry 07/21/18 07/21/18 07/21/18 05:45 06:00 06:15 Temperature Pulse Rate 92 H 93 H 91 H Pulse Rate [ From Monitor] Respiratory 21 22 22 Rate Blood Pressure 144/88 143/89 146/86 O2 Sat by Pulse 97 97 97 Oximetry 07/21/18 07/21/18 07/21/18 06:30 06:45 07:00 Temperature Pulse Rate 93 H 92 H 93 H Pulse Rate [ From Monitor] Respiratory 27 H 23 22 Rate Blood Pressure 151/93 145/87 154/94 O2 Sat by Pulse 96 96 96 Oximetry 07/21/18 07/21/18 07/21/18 07:15 07:30 07:42 Temperature Pulse Rate 92 H 95 H 94 H Pulse Rate [ From Monitor] Respiratory 20 21 Rate Blood Pressure 152/93 164/103 164/103 O2 Sat by Pulse 97 97 Oximetry 07/21/18 07/21/18 07/21/18 07:45 08:00 08:15 Temperature 97.9 F Pulse Rate 94 H 94 H 92 H Pulse Rate [ 94 H From Monitor] Respiratory 24 24 22 Rate Blood Pressure 162/98 158/96 152/94 O2 Sat by Pulse 97 97 97 Oximetry 07/21/18 07/21/18 07/21/18 08:30 08:45 09:00 Temperature Pulse Rate 91 H 91 H 93 H Pulse Rate [ From Monitor] Respiratory 21 18 19 Rate Blood Pressure 153/93 152/81 139/76 O2 Sat by Pulse 98 98 98 Oximetry 07/21/18 07/21/18 07/21/18 09:15 09:30 09:45 Temperature Pulse Rate 96 H 97 H 96 H Pulse Rate [ From Monitor] Respiratory 23 21 20 Rate Blood Pressure 144/76 156/89 153/84 O2 Sat by Pulse 99 98 99 Oximetry 07/21/18 07/21/18 07/21/18 10:00 10:10 10:15 Temperature Pulse Rate 99 H 100 H 99 H Pulse Rate [ From Monitor] Respiratory 18 22 Rate Blood Pressure 166/92 166/92 166/85 O2 Sat by Pulse 97 97 Oximetry 07/21/18 07/21/18 07/21/18 10:30 10:45 11:00 Temperature Pulse Rate 98 H 93 H 94 H Pulse Rate [ From Monitor] Respiratory 20 23 22 Rate Blood Pressure 157/90 156/86 156/86 O2 Sat by Pulse 97 97 96 Oximetry 07/21/18 07/21/18 07/21/18 11:15 11:30 11:45 Temperature Pulse Rate 94 H 93 H 92 H Pulse Rate [ From Monitor] Respiratory 26 H 26 H 26 H Rate Blood Pressure 150/82 146/91 145/84 O2 Sat by Pulse 95 95 95 Oximetry 07/21/18 07/21/18 07/21/18 11:59 12:00 12:15 Temperature 98.2 F Pulse Rate 92 H 91 H 93 H Pulse Rate [ 91 H From Monitor] Respiratory 22 18 Rate Blood Pressure 145/84 150/92 157/96 O2 Sat by Pulse 96 97 Oximetry 07/21/18 07/21/18 07/21/18 12:31 12:45 13:00 Temperature Pulse Rate 91 H 91 H 93 H Pulse Rate [ From Monitor] Respiratory 14 19 20 Rate Blood Pressure 150/94 159/89 147/84 O2 Sat by Pulse 96 96 96 Oximetry 07/21/18 07/21/18 07/21/18 13:15 13:30 13:45 Temperature Pulse Rate 94 H 92 H 93 H Pulse Rate [ From Monitor] Respiratory 26 H 25 H 27 H Rate Blood Pressure 149/81 151/86 142/82 O2 Sat by Pulse 95 94 95 Oximetry 07/21/18 07/21/18 07/21/18 14:00 14:15 14:30 Temperature Pulse Rate 94 H 93 H 93 H Pulse Rate [ From Monitor] Respiratory 23 23 23 Rate Blood Pressure 145/86 150/83 147/83 O2 Sat by Pulse 93 94 94 Oximetry 07/21/18 07/21/18 07/21/18 14:45 15:00 15:15 Temperature Pulse Rate 92 H 91 H 91 H Pulse Rate [ From Monitor] Respiratory 21 18 22 Rate Blood Pressure 147/84 142/80 143/77 O2 Sat by Pulse 94 97 96 Oximetry 07/21/18 07/21/18 07/21/18 15:30 15:45 16:00 Temperature Pulse Rate 89 88 88 Pulse Rate [ From Monitor] Respiratory 18 21 20 Rate Blood Pressure 145/86 145/87 151/88 O2 Sat by Pulse 97 96 96 Oximetry 07/21/18 07/21/18 16:15 16:30 Temperature Pulse Rate 89 91 H Pulse Rate [ From Monitor] Respiratory 21 24 Rate Blood Pressure 145/81 149/89 O2 Sat by Pulse 96 95 Oximetry - Labs CBC & Chem 7: 07/20/18 00:45 07/21/18 05:00 Labs: Abnormal lab results 07/20/18 07/21/18 07/21/18 Range/Units Unknown 05:00 05:00 BUN 44 H (9-20) mg/dL Creatinine 7.0 H (0.8-1.5) mg/dL Glucose 110 H (75-100) mg/dL PTH Intact 257.8 H (15-65) pg/mL Urine Creatinine 88.8 H (0.1-20.0) mg/dL Urine Total Protein 79 H (5-11.8) mg/dL
--- NOTE | 2018-07-21 18:20 | XRay Report ---
FINAL REPORT EXAM: XR CHEST 1V AP HISTORY: pulmonary edema TECHNIQUE: Frontal portable view of the chest Comparison: Chest x-ray dated July 20, 2018 FINDINGS: There has been progressive pulmonary consolidation in the left lung base with the appearance of a lef t pleural fluid collection. There prominence of the interstitial markings in both lungs that appears to be slightly decreased in degree in the interval. The cardiac silhouette is enlarged. The thoracic aorta and bony structures are unremarkable. IMPRESSION: 1. Progressive pulmonary consolidation left lung base with probable left pleural fluid collection. 2. Slight interval decrease in degree of prominence of the interstitial markings bilaterally. 3. Enlarged cardiac silhouette. PA and lateral views of the chest or CT chest may be helpful for further evaluation.
[2018-07-22] MEDS: NORMODYNE IV SCH ×4 (03:21→17:16)
[2018-07-22 05:34] LABS: Basophils % (Auto) 0.6 % (0.0-1.8); Eosinophils # (Auto) 0.1 K/mm3 (0.0-0.4); Eosinophils % (Auto) 1.7 % (0.0-4.3); Hematocrit 28.9 % (35.5-45.6); Hemoglobin 9.9 gm/dl (11.8-15.2); Lymphocytes # (Auto) 0.6 K/mm3 (1.2-5.4); Lymphocytes % (Auto) 8.2 % (13.4-35.0); Mean Corpuscular HGB Conc 34 % (32-34); Mean Corpuscular Volume 82 fl (84-94); Monocytes # (Auto) 0.7 K/mm3 (0.0-0.8); Platelet Count 163 K/mm3 (140-440); Red Blood Count 3.53 M/mm3 (3.65-5.03); Red Cell Distribution Width 13.9 % (13.2-15.2)
[2018-07-22 05:56] LABS: Calcium 8.6 mg/dL (8.4-10.2)
--- NOTE | 2018-07-22 07:53 | Progress Note ---
Assessment and Plan - Patient Problems (1) Hypertensive emergency Current Visit: Yes Status: Acute Plan to address problem: Weaned off the cardene gtt, and is now tolerating PO medications. Will continue to monitor, and if further blood pressure control desired, would favor increasing coreg to 25 mg BID. (2) Chronic kidney disease, stage 5 Current Visit: Yes Status: Acute Plan to address problem: Based on labs and renal US, discussed with patient my concerns for likely progression to CKD V and need for HD in the near future. Will monitor closely. He is not exhibiting any uremic symptoms or signs of volume overload that necessitates the need for urgent HD initiation. He needs to follow-up with us in the outpatient very closely within 1 week of d ischarge. We will also set him up for a kidney education class of that he can get more information about the different modalities of hemodialysis before he makes a final decision. If he does agree with hemodialysis then we will need to also send patient for vascular surgery evaluation for vascular access assessment and placement. From a nephrology standpoint he has no acute indications for initiating hemodialysis of this time. From a nephrology standpoint he is stable to be discharged but again under the of close follow-up with us within 1 week of discharge. (3) Anemia in chronic kidney disease Current Visit: Yes Status: Acute Qualifiers: Chronic kidney disease stage: stage 5, not on chronic dialysis Qualified Code(s): N18.5 - Chronic kidney disease, stage 5; D63.1 - Anemia in chronic kidney disease Plan to address problem: Continue to monitor H/H. BRYON therapy if hemoglobin levels decrease below 9g/dL. (4) Chest pain Current Visit: Yes Status: Acute Plan to address problem: Possibly in the setting of HTN emergency. Symptomatically free at this time. Await further cardiology recommendations. Subjective Date of service: 07/22/18 Interval history: Patient transferred from the ICU to the telemetry floor. He has been weaned off Cardene. He is tolerating his by mouth medications with blood pressures noted. Blood pressures more stable than initial admission. Labs noted and renal function is remaining at [place] stage V. He has no acute indications for in itiating dialysis at present time. Discussed with patient at length about the need for dialysis in the future. Objective - Vital Signs Vital signs: Vital Signs - 12hr 07/21/18 07/21/18 07/21/18 20:00 20:54 22:00 Temperature 97.7 F Pulse Rate 97 H Respiratory 18 Rate Blood Pressure O2 Sat by Pulse 97 Oximetry 07/21/18 07/22/18 23:28 02:59 Temperature 99.7 F H 98.6 F Pulse Rate 97 H 88 Respiratory 16 16 Rate Blood Pressure 138/82 164/108 O2 Sat by Pulse 93 97 Oximetry - General Appearance General appearance: well-developed, well-nourished, appears stated age EENT: ATNC, PERRL Neck: no JVD, no thyromegaly Respiratory: Present: Clear to Ascultation Cardiology: regular, S1S2 Gastrointestinal: normal, normoactive bowel sounds Integumentary: no rash, warm and dry Neurologic: no focal deficit, no asterixis, alert and oriented x3 Psychiatric: mood/affect appropriate, cooperative - Lab 07/22/18 04:33 07/22/18 04:33 Most recent lab results Calcium 8.6 mg/dL (8.4-10.2) 07/22/18 04:33 Urine Creatinine 88.8 mg/dL (0.1-20.0) H 07/20/18 Unknown Urine Total Protein 79 mg/dL (5-11.8) H 07/20/18 Unknown - Allied health notes Allied health notes reviewed: nursing Medications & Allergies - Medications Allergies/Adverse Reactions: Allergies No Known Allergies Allergy (Unverified 07/20/18 00:35) Home Medications: Home Medications Medication Instructions Recorded Confirmed Last Taken Type Carvedilol [Coreg] 6.25 mg PO BID 07/20/18 07/21/18 07/05/18 History amLODIPine [Norvasc] 10 mg PO DAILY 07/20/18 07/20/18 Unknown History Active Medications: Generic Name Dose Route Start Last Admin Trade Name Freq PRN Reason Stop Dose Admin Acetaminophen 650 mg 07/20/18 03:45 Tylenol PO Q4H PRN Headache Aspirin 325 mg 07/20/18 10:00 07/21/18 10:10 Aspirin PO 325 mg QDAY JUNIOR Administration Atorvastatin Calcium 40 mg 07/20/18 22:00 07/21/18 21:14 Lipitor PO 40 mg QHS JUNIOR Administration Carvedilol 12.5 mg 07/20/18 22:00 07/21/18 21:14 Coreg PO 12.5 mg BID JUNIOR Administration Clonidine HCl 0.1 mg 07/20/18 22:00 07/21/18 21:13 Catapres PO 0.1 mg Q12HR JUNIOR Administration Heparin Sodium (Porcine) 5,000 unit 07/20/18 10:00 07/21/18 21:14 Heparin SUB-Q 5,000 unit Q12HR JUNIOR Administration Hydralazine HCl 100 mg 07/20/18 14:00 07/21/18 21:13 Apresoline PO 100 mg TID JUNIOR Administration Nicardipine HCl 50 mg/ Sodium 250 mls @ 25 mls/hr 07/20/18 10:00 07/20/18 21:00 Chloride IV 0 mg/hr TITR JUNIOR 0 mls/hr Titration Protocol 5 MG/HR Labetalol HCl 10 mg 07/20/18 19:00 07/22/18 03:21 Normodyne IV 07/22/18 18:59 10 mg Q4H JUNIOR Administration Morphine Sulfate 2 mg 07/20/18 03:46 07/20/18 09:17 Morphine IV 2 mg Q3H PRN Administration Pain, Moderate (4-6) Ondansetron HCl 4 mg 07/20/18 03:48 07/20/18 08:27 Zofran IV 4 mg Q8H PRN Administration Nausea And Vomiting
[2018-07-22] MEDS: ASPIRIN PO SCH (09:34)
[2018-07-22] MEDS: COREG PO SCH ×2 (09:34→22:12)
[2018-07-22] MEDS: CATAPRES PO SCH ×2 (09:34→22:12)
[2018-07-22] MEDS: HEPARIN SUB-Q SCH ×2 (09:34→22:09)
[2018-07-22] MEDS: APRESOLINE PO SCH ×3 (09:34→22:12)
--- NOTE | 2018-07-22 09:55 | Progress Note ---
Assessment and Plan Hypertensive emergency Chronic kidney disease, stage 5 Anemia in chronic kidney disease Chest pain -Continue with oral medications -VTE prophylaxis -Avoid nephrotoxic agents, dose all medications for GFR/CrCL -Increase activity -Supplemental oxygen as indicated if O2 sats<88% -Discharge planning Subjective Date of service: 07/22/18 Interval history: Patient is seen today for: hypertensive emergency, chest pain, CKD 4, Seen and examined at bedside; 24hour events reviewed; nursing and respiratory care staff consulted; no adverse overnight events reported to me; He denies any chest pain, no shortness of breath, no fvers, no chills, no nausea or vomiting. Objective - Exam Narrative Exam: Gen: WDWN, NAD, Awake, Alert, Oriented x3 HEENT: NCAT, EOMI, PERRL, OP Clear Neck: supple, no adenopathy, no thyromegaly, no JVD CVS/Heart: RRR, normal S1S2, pulses present bilaterally Chest/Lungs: CTA B, Symmetrical chest expansion, good air entry bilaterally GI/Abdomen: soft, NTND, good bowel sounds, no guarding or rebound /Bladder: no suprapubic tenderness, no CVA or paraspinal tenderness Extermity/Skin: no c/c/e, no obvious rash MSK: FROM x 4 Neuro: CN 2-12 grossly intact, no new focal deficits Psych: calm Vital Signs - 12hr 07/21/18 07/21/18 07/22/18 22:00 23:28 02:59 Temperature 99.7 F H 98.6 F Pulse Rate 97 H 97 H 88 Respiratory 16 16 Rate Blood Pressure 138/82 164/108 O2 Sat by Pulse 93 97 Oximetry 07/22/18 07/22/18 08:41 08:54 Temperature 98.5 F Pulse Rate 81 Respiratory 16 Rate Blood Pressure 182/123 O2 Sat by Pulse 97 98 Oximetry CBC and BMP: 07/22/18 04:33 07/22/18 04:33 ABG, PT/INR, D-dimer: PT/INR, D-dimer PT 13.8 Sec. (12.2-14.9) 07/20/18 00:44 INR 1.00 (0.87-1.13) 07/20/18 00:44 Abnormal lab findings: Abnormal Labs 07/20/18 07/20/18 07/20/18 00:45 00:45 05:38 RBC Hgb 11.3 L Hct 34.3 L MCV 83 L MCH 27 L Lymph % (Auto) [place] % (Auto) 8.3 H Lymph # 1.0 L Seg Neutrophils % 75.1 H Carbon Dioxide 21 L 21 L BUN 43 H 44 H Creatinine 6.9 H 6.7 H Glucose 107 H NT-Pro-B Natriuret Pep 00595 H PTH Intact Urine Creatinine Urine Total Protein 07/20/18 07/21/18 07/21/18 Unknown 05:00 05:00 RBC Hgb Hct MCV MCH Lymph % (Auto) [place] % (Auto) Lymph # Seg Neutrophils % Carbon Dioxide BUN 44 H Creatinine 7.0 H Glucose 110 H NT-Pro-B Natriuret Pep PTH Intact 257.8 H Urine Creatinine 88.8 H Urine Total Protein 79 H 07/22/18 07/22/18 04:33 04:33 RBC 3.53 L Hgb 9.9 L Hct 28.9 L MCV 82 L MCH Lymph % (Auto) 8.2 L [place] % (Auto) 9.0 H Lymph # 0.6 L Seg Neutrophils % 80.5 H Carbon Dioxide 21 L BUN 48 H Creatinine 7.2 H Glucose NT-Pro-B Natriuret Pep PTH Intact Urine Creatinine Urine Total Protein Allied health notes reviewed: nursing
--- NOTE | 2018-07-22 14:58 | Progress Note ---
Assessment and Plan Assessment and plan: Patient is a 57-year-old male with a history of hypertension diagnosed about a year ago, who lost his job and lost his insurance and so has been out of his medications for a couple of weeks Presented with one-day history of shortness of breath and intermittent chest pain. In the ER his blood pressure was as high as 232/107 mmHg on presentation. BUN and creatinine are found to be elevated. he was placed on NTG and admitted to ICU. BP did not improve with NTG and patient c/o headache. NTG drip stopped and placed on cardene drip and oral BP meds. His BP much improved, chest pain resolved. weaned off from cardene drip /Hypertensive emergency: Weaned off the cardene gtt, and is now tolerating PO medications. Will continue to monitor, cont coreg, hydralazine and clonidine /Chronic kidney disease, stage 5, nephrology consulted, monitor renal function for now, Concerns for likely progression to CKD V and need for HD in the near future. Will need to be referred to vascular surgery for permanent AVF per renal / Anemia in chronic kidney disease: Continue to monitor H/H. Per renal needs BRYON therapy if hemoglobin levels decrease below 9g/dL. / Chest pain, resolved, most likely bp related, resolved with control of bp: Possibly in the setting of HTN emergency. Symptomatically free at this time, so Cardiology not consulted History Interval history: Patient was seen and examined. Follow-up on current diagnosis of uncontrolled hypertension. Overnight uneventful. Patient denies any chest pain, shortness breath, nausea/vomiting or severe headaches. Imaging, nursing note, chart, labs and old chart reviewed. Discussed with patient. Hospitalist Physical - Physical exam Narrative exam: Gen: WDWN, NAD, Awake, Alert, Orientated HEENT: NCAT, EOMI, PERRL, OP Clear Neck: supple, no adenopathy, no thyromegaly, no JVD CVS/Heart: RRR, normal S1S2, pulses present bilaterally Chest/Lungs: CTA B, Symmetrical chest expansion, good air entry bilaterally GI/Abdomen: soft, NTND, good bowel sounds, no guarding or rebound /Bladder: no suprapubic tenderness, no CVA or paraspinal tenderness Extermity/Skin: no c/c/e, no obvious rash MSK: FROM x 4 Neuro: CN 2-12 grossly intact, no new focal deficits Psych: calm - Constitutional Vitals: Temp Pulse Resp BP Pulse Ox 98.6 F 83 16 141/89 95 07/22/18 11:08 07/22/18 11:08 07/22/18 11:08 07/22/18 11:08 07/22/18 11:08 Results - Labs CBC & Chem 7: 07/22/18 04:33 07/22/18 04:33 Labs: Laboratory Last Values WBC 7.5 K/mm3 (4.5-11.0) 07/22/18 04:33 RBC 3.53 M/mm3 (3.65-5.03) L 07/22/18 04:33 Hgb 9.9 gm/dl (11.8-15.2) L 07/22/18 04:33 Hct 28.9 % (35.5-45.6) L 07/22/18 04:33 MCV 82 fl (84-94) L 07/22/18 04:33 MCH 28 pg (28-32) 07/22/18 04:33 MCHC 34 % (32-34) 07/22/18 04:33 RDW 13.9 % (13.2-15.2) 07/22/18 04:33 Plt Count 163 K/mm3 (140-440) 07/22/18 04:33 Lymph % (Auto) 8.2 % (13.4-35.0) L 07/22/18 04:33 [place] % (Auto) 9.0 % (0.0-7.3) H 07/22/18 04:33 Eos % (Auto) 1.7 % (0.0-4.3) 07/22/18 04:33 Baso % (Auto) 0.6 % (0.0-1.8) 07/22/18 04:33 Lymph # 0.6 K/mm3 (1.2-5.4) L 07/22/18 04:33 [place] # 0.7 K/mm3 (0.0-0.8) 07/22/18 04:33 Eos # 0.1 K/mm3 (0.0-0.4) 07/22/18 04:33 Baso # 0.0 K/mm3 (0.0-0.1) 07/22/18 04:33 Seg Neutrophils % 80.5 % (40.0-70.0) H 07/22/18 04:33 Seg Neutrophils # 6.1 K/mm3 (1.8-7.7) 07/22/18 04:33 PT 13.8 Sec. (12.2-14.9) 07/20/18 00:44 INR 1.00 (0.87-1.13) 07/20/18 00:44 APTT 31.2 Sec. (24.2-36.6) 07/20/18 00:44 Sodium 137 mmol/L (137-145) 07/22/18 04:33 Potassium 4.2 mmol/L (3.6-5.0) 07/22/18 04:33 Chloride 102.2 mmol/L (98-107) 07/22/18 04:33 Carbon Dioxide 21 mmol/L (22-30) L 07/22/18 04:33 Anion Gap 18 mmol/L 07/22/18 04:33 BUN 48 mg/dL (9-20) H 07/22/18 04:33 Creatinine 7.2 mg/dL (0.8-1.5) H 07/22/18 04:33 Estimated GFR 10 ml/min 07/22/18 04:33 BUN/Creatinine Ratio 7 % 07/22/18 04:33 Glucose 92 mg/dL (75-100) 07/22/18 04:33 Calcium 8.6 mg/dL (8.4-10.2) 07/22/18 04:33 Total Creatine Kinase 129 units/L (55-170) 07/20/18 15:04 CK-MB (CK-2) 1.6 ng/mL (0.0-4.0) 07/20/18 15:04 CK-MB (CK-2) Rel Index 1.2 (0-4) 07/20/18 15:04 Troponin T < 0.010 ng/mL (0.00-0.029) 07/20/18 15:04 NT-Pro-B Natriuret Pep 40856 pg/mL (0-450) H 07/20/18 00:45 PTH Intact 257.8 pg/mL (15-65) H 07/21/18 05:00 Urine Color Straw (Yellow) 07/20/18 Unknown Urine Turbidity Clear (Clear) 07/20/18 Unknown Urine pH 5.0 (5.0-7.0) 07/20/18 Unknown Ur Specific [place] 1.008 (1.003-1.030) 07/20/18 Unknown Urine Protein 100 mg/dl mg/dL (Negative) 07/20/18 Unknown Urine Glucose (UA) Neg mg/dL (Negative) 07/20/18 Unknown Urine Ketones Neg mg/dL (Negative) 07/20/18 Unknown Urine Blood Sm (Negative) 07/20/18 Unknown Urine Nitrite Neg (Negative) 07/20/18 Unknown Urine Bilirubin Neg (Negative) 07/20/18 Unknown Urine Urobilinogen < 2.0 mg/dL (<2.0) 07/20/18 Unknown Ur Leukocyte Esterase Neg (Negative) 07/20/18 Unknown Urine WBC (Auto) < 1.0 /HPF (0.0-6.0) 07/20/18 Unknown Urine RBC (Auto) 3.0 /HPF (0.0-6.0) 07/20/18 Unknown Urine Bacteria (Auto) 1+ /HPF (Negative) 07/20/18 Unknown Urine Mucus Few /HPF 07/20/18 Unknown Urine Creatinine 88.8 mg/dL (0.1-20.0) H 07/20/18 Unknown Urine Total Protein 79 mg/dL (5-11.8) H 07/20/18 Unknown Urine Opiates Screen Presumptive negative 07/20/18 06:57 Urine Methadone Screen Presumptive negative 07/20/18 06:57 Ur Barbiturates Screen Presumptive negative 07/20/18 06:57 Ur Phencyclidine Scrn Presumptive negative 07/20/18 06:57 Ur Amphetamines Screen Presumptive negative 07/20/18 06:57 U Benzodiazepines Scrn Presumptive negative 07/20/18 06:57 Urine Cocaine Screen Presumptive negative 07/20/18 06:57 U Marijuana (THC) Screen Presumptive negative 07/20/18 06:57 Drugs of Abuse Note Disclamer 07/20/18 06:57 Hep Bs Antigen Non-reactive (Negative) 07/21/18 05:00 Hepatitis C Antibody Non-reactive (NonReactive) 07/21/18 05:00
[2018-07-23] MEDS: APRESOLINE PO SCH ×2 (08:36→14:28)
[2018-07-23] MEDS: CATAPRES PO SCH (09:20)
[2018-07-23] MEDS: HEPARIN SUB-Q SCH (09:20)
[2018-07-23] MEDS: COREG PO SCH (09:20)
[2018-07-23] MEDS: ASPIRIN PO SCH (09:20)
--- NOTE | 2018-07-23 10:51 | Progress Note ---
Assessment and Plan - Patient Problems (1) Hypertensive emergency Current Visit: Yes Status: Acute Plan to address problem: Weaned off the cardene gtt, and is now tolerating PO medications. Will continue to monitor, we increased coreg to 25 mg BID yesterday. We'll also patient on amlodipine 5 mg by mouth daily. (2) Chronic kidney disease, stage 5 Current Visit: Yes Status: Acute Plan to address problem: Based on labs and renal US, discussed with patient my concerns for likely progression to CKD V and need for HD in the near future. Will monitor closely. He is not exhibiting any uremic symptoms or signs of volume overload that necessitates the need for urgent HD initiation. He needs to follow-up with us in the outpatient very closely within 1 week of discharge. We will also set him up for a kidney education class of that he can get more information about the different modalities of hemodialysis before he makes a final decision. If he does agree with hemodialysis then we will need to also send patient for vascular surgery evaluation for vascular access assessment and placement. From a nephrology standpoint he has no acute indications for initiating hemodialysis of this time. From a nephrology standpoint he is stable to be discharged but again under the of close follow-up with us within 1 week of discharge. (3) Anemia in chronic kidney disease Current Visit: Yes Status: Acute Qualifiers: Chronic kidney disease stage: stage 5, not on chronic dialysis Qualified Code(s): N18.5 - Chronic kidney disease, stage 5; D63.1 - Anemia in chronic kidney disease Plan to address problem: Continue to monitor H/H. BRYON therapy if hemoglobin levels decrease below 9g/dL. (4) Chest pain Current Visit: Yes Status: Acute Plan to address problem: Possibly in the setting of HTN emergency. Symptomatically free at this time. (5) Secondary hyperparathyroidism (of renal origin) Current Visit: Yes Status: Acute Plan to address problem: We'll need to assess vitamin D levels in the outpatient setting. We'll start on calcitriol 0.25 g every Saturday. Subjective Date of service: 07/23/18 Interval history: No acute issues overnight. Labs pending this morning. Overall renal function has been stable but he remains in chronic kidney disease stage V. There is no acute indication to initiate hemodialysis during this admission. Will add amlodipine 5 mg to his current regimen. He needs to follow up with us as an outpatient within one week post discharge. He is working with case management in regards to financial assistance help. Objective - Vital Signs Vital signs: Vital Signs - 12hr 07/23/18 07/23/18 07/23/18 00:57 04:57 07:31 Temperature 98.3 F 98.4 F 98.6 F Pulse Rate 84 82 77 Pulse Rate [ Apical] Pulse Rate [ From Monitor] Respiratory 18 18 16 Rate Respiratory Rate [Head] Blood Pressure 166/105 162/104 169/110 O2 Sat by Pulse 95 95 96 Oximetry 07/23/18 07/23/18 07/23/18 08:43 08:53 09:20 Temperature Pulse Rate 84 Pulse Rate [ 84 Apical] Pulse Rate [ 84 From Monitor] Respiratory 20 Rate Respiratory 20 Rate [Head] Blood Pressure 169/110 O2 Sat by Pulse 98 Oximetry - General Appearance General appearance: well-developed, well-nourished, appears stated age EENT: ATNC, PERRL Neck: no JVD, no thyromegaly Respiratory: Present: Clear to Ascultation, Normal Exam Cardiology: regular, normal heart rate, S1S2 Gastrointestinal: normal, normoactive bowel sounds Integumentary: no rash, warm and dry Neurologic: no focal deficit, no asterixis, alert and oriented x3 Psychiatric: mood/affect appropriate, cooperative - Lab 07/22/18 04:33 07/22/18 04:33 Most recent lab results Calcium 8.6 mg/dL (8.4-10.2) 07/22/18 04:33 Urine Creatinine 88.8 mg/dL (0.1-20.0) H 07/20/18 Unknown Urine Total Protein 79 mg/dL (5-11.8) H 07/20/18 Unknown - Allied health notes Allied health notes reviewed: nursing Medications & Allergies - Medications Allergies/Adverse Reactions: Allergies No Known Allergies Allergy (Unverified 07/20/18 00:35) Home Medications: Home Medications Medication Instructions Recorded Confirmed Last Taken Type Carvedilol [Coreg] 6.25 mg PO BID 07/20/18 07/21/18 07/05/18 History amLODIPine [Norvasc] 10 mg PO DAILY 07/20/18 07/20/18 Unknown History Active Medications: Generic Name Dose Route Start Last Admin Trade Name Freq PRN Reason Stop Dose Admin Acetaminophen 650 mg 07/20/18 03:45 Tylenol PO Q4H PRN Headache Aspirin 325 mg 07/20/18 10:00 07/23/18 09:20 Aspirin PO 325 mg QDAY JUNIOR Administration Atorvastatin Calcium 40 mg 07/20/18 22:00 07/22/18 22:12 Lipitor PO 40 mg QHS JUNIOR Administration Carvedilol 25 mg 07/22/18 10:00 07/23/18 09:20 Coreg PO 25 mg BID [facility] Administration Clonidine HCl 0.1 mg 07/20/18 22:00 07/23/18 09:20 Catapres PO 0.1 mg Q12HR [facility] Administration Heparin Sodium (Porcine) 5,000 unit 07/20/18 10:00 07/23/18 09:20 Heparin SUB-Q 5,000 unit Q12HR [facility] Administration Hydralazine HCl 100 mg 07/20/18 14:00 07/23/18 08:36 Apresoline PO 100 mg TID JUNIOR Administration Morphine Sulfate 2 mg 07/20/18 03:46 07/20/18 09:17 Morphine IV 2 mg Q3H PRN Administration Pain, Moderate (4-6) Ondansetron HCl 4 mg 07/20/18 03:48 07/20/18 08:27 Zofran IV 4 mg Q8H PRN Administration Nausea And Vomiting
--- NOTE | 2018-07-23 15:10 | Discharge Summary ---
Providers - Providers Date of Admission: 07/20/18 03:52 Date of discharge: 07/23/18 Attending physician: YOANDY WEAVER 07/20/18 03:41 Consult to Physician [CONS] Routine Comment: Consulting Provider: RL SCHMID Physician Instructions: Reason For Exam: ICU ADMIISSION FOR NITRODRIP INFUSION 07/20/18 06:00 Consult to Physician [CONS] Routine Comment: Consulting Provider: BIJAN SEN Physician Instructions: Reason For Exam: DHEERAJ Primary care physician: [facility] Hospitalization Condition: Stable Hospital course: Patient is a 37-year-old man with a history of hypertension diagnosed about a year ago' who lost his job and lost his insurance and so has been out of his medications for a couple of weeks Presented with one-day history of shortness of breath and intermittent chest pain. In the ER his blood pressure was as high as 232/107 mmHg on presentation. BUN and creatinine are found to be elevated. he was placed on NTG and admitted to ICU. BP did not improve with NTG and patient c/o headache. NTG drip stopped and placed on cardene drip and oral BP meds. His BP much improved, chest pain resolved. weaned off from cardene drip /Hypertensive emergency: Weaned off the cardene gtt, and is now tolerating PO medications. Will continue to monitor, cont coreg, hydralazine and clonidine /Acute on Chronic kidney disease, stage 5, ATN+vasomotor nephropathy, nephrology consulted, monitor renal function for now, most likely progression to CKD V and need for HD in the near future. /Anemia in chronic kidney disease: Continue to monitor H/H. Per renal needs BRYON therapy if hemoglobin levels decrease below 9g/dL. / Chest pain, resolved, most likely bp related, resolved with control of bp: Possibly in the setting of HTN emergency. Symptomatically free at this time, so Cardiology not consulted /Elevated pro-BNP most likely fluid overload, kidney related Disposition: CA- TO HOME OR SELFCARE Time spent for discharge: 34 minutes Core Measure Documentation - Palliative Care Palliative Care/ Comfort Measures: Not Applicable - Core Measures Any of the following diagnoses?: none - VTE Discharge Requirements Deep Vein Thrombosis/Pulmonary Embolism Present on Admission: No Has pt received <5 days of overlap therapy or INR<2.0: No Anticoagulant overlap therapy prescribed at discharge: No Contraindication No Overlap Therapy order at DC: Not Indicated Exam - Physical Exam Narrative exam: Gen: WDWN, NAD, Awake, Alert, Orientated HEENT: NCAT, EOMI, PERRL, OP Clear Neck: supple, no adenopathy, no thyromegaly, no JVD CVS/Heart: RRR, normal S1S2, pulses present bilaterally Chest/Lungs: CTA B, Symmetrical chest expansion, good air entry bilaterally GI/Abdomen: soft, NTND, good bowel sounds, no guarding or rebound /Bladder: no suprapubic tenderness, no CVA or paraspinal tenderness Extermity/Skin: no c/c/e, no obvious rash MSK: FROM x 4 Neuro: CN 2-12 grossly intact, no new focal deficits Psych: calm - Constitutional Vitals: Temp Pulse Resp BP Pulse Ox 98.6 F 84 20 169/110 98 07/23/18 07:31 07/23/18 09:20 07/23/18 08:53 07/23/18 09:20 07/23/18 08:53 Plan Activity: other (no strenous activity unless cleared by PCP) Diet: renal Follow up with: PRIMARY CARE, [Primary Care Provider] - 7 Days DAVID NEUMANN DO [Staff Physician] - 7 Days [facility] [Provider Group] - 7 Days Prescriptions: amLODIPine [Norvasc] 5 mg PO QDAY #30 tablet Calcitriol [Rocaltrol] 0.25 mcg PO QDAY #30 capsule Carvedilol [Coreg] 25 mg PO BID #60 tablet cloNIDine [Catapres] 0.1 mg PO Q12HR #60 tablet hydrALAZINE [Apresoline TAB] 100 mg PO TID #90 tab
[2018-07-23 16:48] VITALS: BP 195/128
[2018-07-24] MEDS ORDERED: ROCALTROL PO SCH (10:00)
[2018-07-24] MEDS ORDERED: NORVASC PO SCH (10:00)
[2018-07-31 08:27] LABS: Vitamin D, 25-OH, D2 SEE SCANNED RESULT
== END 2018-07-23 18:39 | disposition home or self-care (01) | DRG 682 ==
LOC: SUATTDRO 00:32 → ED 00:32 → CC1 03:52 → 4A 07-21 17:38
PROVIDERS: ADMIT Internal Medicine; ATTEND Internal Medicine
DX: N17.0 Acute kidney failure with tubular necrosis (principal); J96.01 Acute respiratory failure with hypoxia; I16.1 Hypertensive emergency; I42.9 Cardiomyopathy, unspecified; E87.2 Acidosis; I12.0 Hypertensive chronic kidney disease with stage 5 chronic kidney disease or end stage renal disease; I10 Essential (primary) hypertension; N18.5 Chronic kidney disease, stage 5; N25.81 Secondary hyperparathyroidism of renal origin; E87.70 Fluid overload, unspecified; D63.1 Anemia in chronic kidney disease; Z80.9 Family history of malignant neoplasm, unspecified; Z82.49 Family history of ischemic heart disease and other diseases of the circulatory system; Z91.19 Patient's noncompliance with other medical treatment and regimen
CPT/HCPCS: 36415; 71045; 76770; 80048; 80307; 81001; 82306; 82550; 82553; 82570; 83880; 83970; 84156; 84484; 85025; 85610; 85730; 86706; 86803; 93005; 93010; 94760; 96374; G0378; A9270-GY; J1644; J2270; J2405; J7050